=== PATIENT | male | born 1970 | race Caucasian/White ===

== ENCOUNTER 2016-11-24 09:42 | Emergency (ER) | payer MEDICAID, OTHER ==
[2016-11-24 09:50] VITALS: BMI 34.0
[2016-11-24 09:52] VITALS: RESP 18; TEMP 97.8
[2016-11-24] MEDS ORDERED: Naproxen 550 mg Tab PO STA (10:26)
--- NOTE | 2016-11-24 10:26 | C.PDOC ---
History Of Present Illness A 46 year old male presents to the emergency room with complaints of left lower back/buttock pain that has been radiating down the left leg for the last week. Patient reports an accompanying tingling & numbness sensation in the left lower leg and foot. Patient feels like 'the foot is dragging.' Patient reports a history of liver cirrhosis due to ETOH use. Patient states that he doesn't drink any more. Patient denies any trauma, fever, saddle anesthesia, urinary incontinence or difficulty, drug use, or any other complaints. Time Seen by Provider: 11/24/16 10:26 Chief Complaint (Nursing): Lower Extremity Problem/Injury History Per: Patient History/Exam Limitations: no limitations Onset/Duration Of Symptoms: Hrs Current Symptoms Are (Timing): Still Present Severity: Mild Recent travel outside of the [place]: No Past Medical History Reviewed: Historical Data, Nursing Documentation, Vital Signs Vital Signs: Last Vital Signs Temp 97.8 F 11/24/16 09:50 Pulse 75 11/24/16 12:00 Resp 18 11/24/16 12:00 BP 124/72 11/24/16 12:00 Pulse Ox 100 11/24/16 13:54 Family History: States: Unknown Family Hx - Social History Hx Tobacco Use: Yes (2 cigarettes daily) Hx Alcohol Use: No Hx Substance Use: No - Immunization History Hx Tetanus Toxoid Vaccination: No Hx Influenza Vaccination: No Hx Pneumococcal Vaccination: No Review Of Systems Except As Marked, All Systems Reviewed And Found Negative. Constitutional: Negative for: Fever, Chills Gastrointestinal: Negative for: Nausea, Vomiting, Diarrhea Musculoskeletal: Positive for: Back Pain (Left lower back/buttock pain) Neurological: Positive for: Numbness (Tingling numbness sensation radiating down left leg.). Negative for: Weakness, Headache, Dizziness Physical Exam - Physical Exam Appears: Well, Non-toxic Skin: Normal Color, Warm, Dry, No Rash Head: Atraumatic, Normacephalic Cardiovascular: Rhythm Regular Respiratory: Normal Breath Sounds, No Rales, No Rhonchi, No Wheezing Gastrointestinal/Abdominal: Soft, No Tenderness Back: No CVA Tenderness, No Vertebral Tenderness, No Paraspinal Tenderness Extremity: Normal ROM, No Tenderness, No Deformity, No Swelling Neurological/Psych: Oriented x3, Normal Speech, Normal Cognition, Cerebellar Signs, Normal Motor, No Normal Sensation (Subjective decreased sensation along the L4-L5 dermatome.), Other (4/5 strength with dorsiflexion of the left foot. no saddle anesthesia. normal rectal tone.) ED Course And Treatment O2 Sat by Pulse Oximetry: 100 Medical Decision Making Medical Decision Making: Christopher Toribio- he can see pt in the hospital as consult or in his office tomorrow at 1030am. The pt does not wish to stay and signed out AMA. He will see the neurosurgeon tomorrow in the office. Disposition - Disposition Disposition: AGAINST MEDICAL ADVICE Disposition Time: 14:04 Condition: STABLE - Clinical Impression Clinical Impression: Lumbar nerve root compression - Scribe Statement The provider has reviewed the documentation as recorded by the Scribconchis Prasad All medical record entries made by the Eviibconchis were at my direction and personally dictated by me. I have reviewed the chart and agree that the record accurately reflects my personal performance of the history, physical exam, medical decision making, and the department course for this patient. I have also personally directed, reviewed, and agree with the discharge instructions and disposition.
[2016-11-24] MEDS ORDERED: Naproxen 550 mg Tab PO ONE (10:33)
--- NOTE | 2016-11-24 13:34 | MRI ---
PROCEDURE: MRI lumbar spine 11/24/2016 HISTORY: Back pain. Weak left-sided dorsiflexion, numb L4-5 dermatome COMPARISON: No prior study available for comparison TECHNIQUE: Multi echo multiplanar sequences were performed through the lumbar spine without the use of intravenous contrast. FINDINGS: Findings: The current study reveals no acute compression fractures no retropulsed fragments. The vertebral bodies exhibit normal stature of. Vertebral bodies and facets normally aligned. Mild degenerative spondylosis noted at the L4-L5 level. There is disc desiccation however disc space height is relatively maintained. There is asymmetric broad-based disc bulge larger on the left more so than right. In addition, more discrete left parasagittal and left lateral disc herniation is present that results in compression of the left anterolateral and mid anterolateral border of the thecal sac with posterior compression and displacement of the L5 as well as the intrathecal left-sided S1 and possibly S2 nerve roots. Facets are hypertrophic. There is left lateral recess stenosis. Disc does extend slightly into the proximal inferior margin of the left exit foramen. Right exit foramen is adequate. At the L5-S1 level, there is also disc desiccation and minor posterior disc space narrowing. Small central and bilateral disc herniation with minimal inferior subligamentous extension of disc over short distance dorsal to the posterior superior corner of the S1 segment. The small disc herniation reaches the ventral surfaces of the descending S1 nerve roots more so on the left side however the overall central canal appears adequate. Facets are hypertrophic. Exit foramina are adequate. The remaining levels exhibit mild age related disc desiccation. No disc herniation or significant disc bulge. The overall central canal and exit foramina appear adequate however mild multilevel facet arthropathy L3-L4 through the L1-L2 levels in somewhat decreasing order of severity. Conus terminates at approximately the T12-L1 level. Impression: The degenerative spondylosis most notably affecting L4-L5 level where there is asymmetric broad-based disc bulge associated with a small left lateral herniation component that does result in compressive effects on the left-sided descending extra thecal and intrathecal nerve roots of the cauda equina on the left side as detailed above. Mild degenerative spondylosis also seen at the L5-S1 level. Mild multilevel facet arthropathy.
[2016-11-24 14:06] VITALS: BP 130/79; PULSE 60; O2SAT 97
== END 2016-11-24 14:13 | disposition left against medical advice (07) ==
LOC: C.ER 09:42
DX: G54.4 Lumbosacral root disorders, not elsewhere classified (principal)

== ENCOUNTER 2017-09-22 01:27 | Emergency (ER) | payer OTHER ==
[2017-09-22 01:27] VITALS: BMI 34.0
[2017-09-22 01:38] VITALS: TEMP 97.6
[2017-09-22] MEDS ORDERED: Albuterol 0.083% Inhal Sol (2.5 mg/3 mL) UD IH STA (02:03)
[2017-09-22] MEDS ORDERED: Promethazine/Cod 6.25mg-10mg/5ml Syr UD PO STA (02:04)
[2017-09-22] MEDS ORDERED: Albuterol 0.083% Inhal Sol (2.5 mg/3 mL) UD ONE (02:15)
[2017-09-22] MEDS ORDERED: Promethazine/Cod 6.25mg-10mg/5ml Syr UD ONE (02:16)
[2017-09-22 03:45] VITALS: BP 109/64; PULSE 90; RESP 18
--- NOTE | 2017-09-22 03:46 | C.PDOC ---
History Of Present Illness 47 year old male presents to the ER with a complaint of cough for the past 2 weeks, associated with chest tightness, congestion, and subjective fever. Patient states he has been taking OTC medications with no relief. Denies chest pain or SOB. Time Seen by Provider: 09/22/17 01:43 Chief Complaint (Nursing): Cough, Cold, Congestion History Per: Patient History/Exam Limitations: no limitations Onset/Duration Of Symptoms: Days Current Symptoms Are (Timing): Still Present Recent travel outside of the [place]: No Past Medical History Reviewed: Historical Data, Nursing Documentation, Vital Signs Vital Signs: Last Vital Signs Temp 97.6 F 09/22/17 03:45 Pulse 90 09/22/17 03:45 Resp 18 09/22/17 03:45 BP 109/64 09/22/17 03:45 Pulse Ox 97 09/22/17 03:49 Family History: States: Unknown Family Hx - Social History Hx Tobacco Use: Yes (2 cigarettes daily) Hx Alcohol Use: Yes Hx Substance Use: No - Immunization History Hx Tetanus Toxoid Vaccination: No Hx Influenza Vaccination: No Hx Pneumococcal Vaccination: No Review Of Systems Constitutional: Positive for: Fever (Subjective) Cardiovascular: Negative for: Chest Pain Respiratory: Positive for: Cough, Other (Chest tightness, Chest congestion). Negative for: Shortness of Breath Physical Exam - Physical Exam Appears: Non-toxic, No Acute Distress Skin: Normal Color, Warm, Dry Head: Atraumatic, Normacephalic Eye(s): bilateral: Normal Inspection Oral Mucosa: Moist Chest: Symmetrical, No Tenderness Cardiovascular: Rhythm Regular Respiratory: No Rales, Rhonchi, Wheezing Neurological/Psych: Oriented x3, Normal Speech ED Course And Treatment O2 Sat by Pulse Oximetry: 97 (Room air) Pulse Ox Interpretation: Normal Progress Note: CXR ordered. Motrin, phenergan, prednisone, and albuterol administered. On reevaluation, patient is resting comfortably in the ER in no acute distress with clear breath sounds. Will discharge home with instructions to follow up with PMD or return if symptoms worsen. Disposition Counseled Patient/Family Regarding: Diagnosis, Need For Followup, Rx Given - Disposition Referrals: [facility] [Outside] Disposition: HOME/ ROUTINE Disposition Time: 03:37 Condition: GOOD Additional Instructions: Increase PO fluids Take meds as directed Follow up with PMD or in clinic Return to ER if worse Prescriptions: Amoxicillin 500 mg PO TID #21 tab Ibuprofen [Motrin] 600 mg PO Q6H #20 tab predniSONE [Prednisone] 40 mg PO DAILY #10 tab Promethazine DM [Phenergan DM Syrup] 5 ml PO QID #100 ml Forms: [employer] ([employer]) - Clinical Impression Clinical Impression: Bronchitis - 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 - Scribe Statement The provider has reviewed the documentation as recorded by the Scribconchis Gage All medical record entries made by the Joseline were at my direction and personally dictated by me. I have reviewed the chart and agree that the record accurately reflects my personal performance of the history, physical exam, medical decision making, and the department course for this patient. I have also personally directed, reviewed, and agree with the discharge instructions and disposition.
[2017-09-22 05:38] VITALS: O2SAT 97
--- NOTE | 2017-09-22 08:29 | RAD ---
HISTORY: cough COMPARISON: 01/17/2016 TECHNIQUE: Chest PA and lateral FINDINGS: LUNGS: No active pulmonary disease. PLEURA: No significant pleural effusion identified. No pneumothorax apparent. CARDIOVASCULAR: Normal. OSSEOUS STRUCTURES: No significant abnormalities. VISUALIZED UPPER ABDOMEN: Normal. OTHER FINDINGS: None. IMPRESSION: No active disease.
== END 2017-09-22 04:25 | disposition home or self-care (01) ==
LOC: C.ER 01:27
DX: J40 Bronchitis, not specified as acute or chronic (principal); F17.210 Nicotine dependence, cigarettes, uncomplicated

== ENCOUNTER 2018-09-23 09:58 | Observation (INO) | payer OTHER | END 2018-09-24 18:00 | disposition home or self-care (01) | LOC: C.ER 09:58 → C.9E 14:04 → C.6T 16:21 ==